=== PATIENT | female | born 1985 | race American Indian/Alaskan Native ===

== ENCOUNTER 2021-03-30 20:12 | Emergency (ER) | payer MEDICAID ==
[2021-03-31 04:39] LABS: Bacteria,Urine 4+ /HPF (Negative); Bilirubin,Urine NEG (Negative); Blood,Urine MOD (Negative); Color,Urine Yellow (Yellow); Mucus,Urine 3+ /HPF; Urobilinogen,Urine < 2.0 mg/dL (<2.0)
[2021-03-31 05:14] LABS: Basophils % (Auto) 0.4 % (0.0-1.8); Eosinophils % (Auto) 0.8 % (0.0-4.3); Hematocrit 37.8 % (30.3-42.9); Lymphocytes # (Auto) 1.8 K/mm3 (1.2-5.4); Lymphocytes % (Auto) 41.5 % (13.4-35.0); Mean Corpuscular HGB Conc 32 % (30-34); Mean Corpuscular Volume 80 fl (79-97); Monocytes # (Auto) 0.5 K/mm3 (0.0-0.8); Monocytes % (Auto) 12.1 % (0.0-7.3); Platelet Count 430 K/mm3 (140-440); Red Blood Count 4.74 M/mm3 (3.65-5.03); Red Cell Distribution Width 16.9 % (13.2-15.2)
[2021-03-31 05:28] LABS: Alanine Aminotransferase 26 units/L (7-56); Albumin 4.6 g/dL (3.9-5); BUN/Creatinine Ratio 14; Blood Urea Nitrogen 11 mg/dL (7-17); Calcium 9.1 mg/dL (8.4-10.2); Hemolysis Index 6
[2021-03-31] MEDS ORDERED: cefTRIAXone/NS 2 GM/100 ML 2 GM/100 ML BAG IV ONE (07:07)
[2021-03-31] MEDS ORDERED: MORPHINE 4 MG/1 ML INJ IV ONE (07:07)
[2021-03-31] MEDS ORDERED: SODIUM CHLORIDE 0.9% 1000 ML 1,000 ML IV ONE (07:07)
[2021-03-31] MEDS ORDERED: ONDANSETRON 4 MG/2 ML INJ IV ONE (07:07)
--- NOTE | 2021-03-31 07:37 | Emergency Department Report ---
ED Abdominal Pain HPI - General Chief Complaint: Abdominal Pain Stated Complaint: ABDOMINAL PAIN Time Seen by Provider: 03/31/21 07:06 Source: EMS Mode of arrival: Stretcher Limitations: No Limitations - History of Present Illness Initial Comments: This is a 35-year-old female nontoxic, well nourished in appearance, no acute signs of distress presents to the ED with c/o of nausea and vomiting and abdominal pain several days. Patient describes vomiting as food content and yellow gastric acid. Patient describes abdominal pain as cramping and aching with level of 8/10 diffuse. When asked patient about her incision site from C- section that was performed about 2 months ago, patient denies any symptoms such as purulent drainage or any complaints at incision site. Patient denies chest pain, short of breath, fever, hemoptysis, blood in stool, chills, headache, stiff neck, numbness or tingling. Patient denies any diarrhea or constipation. Denies any blood in stool. Patient denies any recent travels. Patient denies any allergies or PMH. The patient was evaluated in the emergency department for symptoms described in the history of present illness. He/she was evaluated in the context of the global COVID-19 pandemic, which necessitated consideration that the patient might be at risk for infection with the virus that causes COVID-19. Institutional protocols and algorithms that pertain to the evaluation of patients at risk for COVID-19 are in a state of rapid change based on information released by regulatory bodies including the CDC and federal and state organizations. These policies and algorithms were followed during the alisha burt's care in the emergency department. Please note that these policies, procedures and recommendations changed on a rapid basis. MD Complaint: abdominal pain -: days(s) Location: diffuse Radiation: none Migration to: no migration Severity: mild Severity scale (0 -10): 8 Quality: cramping, aching Consistency: constant Improves With: nothing Worsens With: nothing Associated Symptoms: nausea, vomiting. denies: diarrhea, fever, chills, constipation, dysuria, hematemesis, hematochezia, melena, hematuria, anorexia, syncope - Related Data Previous Rx's Medication Instructions Recorded Last Taken Type Dicyclomine [Bentyl] 20 mg PO Q12H PRN #12 tablet 03/31/21 Unknown Rx Ondansetron [Zofran Odt] 4 mg PO Q8HR PRN #12 tab.rapdis 03/31/21 Unknown Rx cephALEXin [Keflex] 500 mg PO Q8HR #21 cap 03/31/21 Unknown Rx Allergies Allergy/AdvReac Type Severity Reaction Status Date / Time No Known Allergies Allergy Verified 03/30/21 20:20 ED Review of Systems ROS: Stated complaint: ABDOMINAL PAIN Other details as noted in HPI Comment: All other systems reviewed and negative Constitutional: denies: chills, fever Eyes: denies: eye pain, eye discharge, vision change ENT: denies: ear pain, throat pain Respiratory: denies: cough, shortness of breath, wheezing Cardiovascular: denies: chest pain, palpitations Endocrine: no symptoms reported Gastrointestinal: abdominal pain, nausea, vomiting. denies: diarrhea, constipation, hematemesis, melena, hematochezia Genitourinary: denies: urgency, dysuria, discharge Musculoskeletal: denies: back pain, joint swelling, arthralgia Skin: denies: rash, lesions Neurological: denies: headache, weakness, paresthesias Psychiatric: denies: anxiety, depression Hematological/Lymphatic: denies: easy bleeding, easy bruising ED Past Medical Hx - Medications Home Medications: Home Medications Medication Instructions Recorded Confirmed Last Taken Type Dicyclomine [Bentyl] 20 mg PO Q12H PRN #12 tablet 03/31/21 Unknown Rx Ondansetron [Zofran Odt] 4 mg PO Q8HR PRN #12 tab.rapdis 03/31/21 Unknown Rx cephALEXin [Keflex] 500 mg PO Q8HR #21 cap 03/31/21 Unknown Rx ED Physical Exam - General Limitations: No Limitations General appearance: alert, in no apparent distress - Head Head exam: Present: atraumatic, normocephalic - Eye Eye exam: Present: normal appearance - Neck Neck exam: Present: normal inspection, full ROM. Absent: lymphadenopathy - Respiratory Respiratory exam: Present: normal lung sounds bilaterally. Absent: respiratory distress, wheezes, rales, rhonchi, stridor, chest wall tenderness, accessory muscle use, decreased breath sounds, prolonged expiratory - Cardiovascular Cardiovascular Exam: Present: regular rate, normal rhythm, normal heart sounds. Absent: bradycardia, tachycardia, irregular rhythm, systolic murmur, diastolic murmur, rubs, gallop - GI/Abdominal GI/Abdominal exam: Present: soft, tenderness (diffuse), normal bowel sounds, other (No cellulitis in incision site. No abscess on exam in incision site. No purulent drainage noted on exam from incision site.). Absent: distended, guarding, rebound, rigid, diminished bowel sounds - Extremities Exam Extremities exam: Present: full ROM - Back Exam Back exam: Present: normal inspection, full ROM. Absent: tenderness, CVA tenderness (R), CVA tenderness (L), muscle spasm, paraspinal tenderness, vertebral tenderness, rash noted - Neurological Exam Neurological exam: Present: alert, oriented X3, normal gait - Psychiatric Psychiatric exam: Present: normal affect, normal mood - Skin Skin exam: Present: warm, dry, intact, normal color. Absent: rash ED Course Vital Signs 03/30/21 03/31/21 20:22 10:25 Temperature 98.6 F 98.4 F Pulse Rate 88 76 Respiratory 18 20 Rate Blood Pressure 153/97 [Left] Blood Pressure 154/97 [Right] O2 Sat by Pulse 98 99 Oximetry - Reevaluation(s) Reevaluation #1: 03/31/21 07:36 Patient is speaking in full sentences with no signs of distress noted. ED Medical Decision Making - Lab Data Result diagrams: 03/31/21 04:07 03/31/21 04:07 Lab Results 03/31/21 03/31/21 03/31/21 Range/Units 04:07 04:07 04:07 WBC 4.3 L (4.5-11.0) K/mm3 RBC 4.74 (3.65-5.03) M/mm3 Hgb 12.0 (10.1-14.3) gm/dl Hct 37.8 (30.3-42.9) % MCV 80 (79-97) fl MCH 25 L (28-32) pg MCHC 32 (30-34) % RDW 16.9 H (13.2-15.2) % Plt Count 430 (140-440) K/mm3 Lymph % (Auto) 41.5 H (13.4-35.0) % Wilkin % (Auto) 12.1 H (0.0-7.3) % Eos % (Auto) 0.8 (0.0-4.3) % Baso % (Auto) 0.4 (0.0-1.8) % Lymph # (Auto) 1.8 (1.2-5.4) K/mm3 Wilkin # (Auto) 0.5 (0.0-0.8) K/mm3 Eos # (Auto) 0.0 (0.0-0.4) K/mm3 Baso # (Auto) 0.0 (0.0-0.1) K/mm3 Seg Neutrophils % 45.2 (40.0-70.0) % Seg Neutrophils # 2.0 (1.8-7.7) K/mm3 Sodium 136 L (137-145) mmol/L Potassium 3.7 (3.6-5.0) mmol/L Chloride 97.1 L (98-107) mmol/L Carbon Dioxide 23 (22-30) mmol/L Anion Gap 20 mmol/L BUN 11 (7-17) mg/dL Creatinine 0.8 (0.6-1.2) mg/dL Estimated GFR > 60 ml/min BUN/Creatinine Ratio 14 % Glucose 130 H (65-100) mg/dL Calcium 9.1 (8.4-10.2) mg/dL Total Bilirubin 0.20 (0.1-1.2) mg/dL AST 24 (5-40) units/L ALT 26 (7-56) units/L Alkaline Phosphatase 115 (35-129) units/L Total Protein 8.3 H (6.3-8.2) g/dL Albumin 4.6 (3.9-5) g/dL Albumin/Globulin Ratio 1.2 % HCG, Qual Negative (Negative) Urine Color (Yellow) Urine Turbidity (Clear) Urine pH (5.0-7.0) Ur Specific [place] (1.003-1.030) Urine Protein (Negative) mg/dL Urine Glucose (UA) (Negative) mg/dL Urine Ketones (Negative) mg/dL Urine Blood (Negative) Urine Nitrite (Negative) Urine Bilirubin (Negative) Urine Urobilinogen (<2.0) mg/dL Ur Leukocyte Esterase (Negative) Urine WBC (Auto) (0.0-6.0) /HPF Urine RBC (Auto) (0.0-6.0) /HPF U Epithel Cells (Auto) (0-13.0) /HPF Urine Bacteria (Auto) (Negative) /HPF Urine Mucus /HPF 03/31/21 Range/Units Unknown WBC (4.5-11.0) K/mm3 RBC (3.65-5.03) M/mm3 Hgb (10.1-14.3) gm/dl Hct (30.3-42.9) % MCV (79-97) fl MCH (28-32) pg MCHC (30-34) % RDW (13.2-15.2) % Plt Count (140-440) K/mm3 Lymph % (Auto) (13.4-35.0) % Wilkin % (Auto) (0.0-7.3) % Eos % (Auto) (0.0-4.3) % Baso % (Auto) (0.0-1.8) % Lymph # (Auto) (1.2-5.4) K/mm3 Wilkin # (Auto) (0.0-0.8) K/mm3 Eos # (Auto) (0.0-0.4) K/mm3 Baso # (Auto) (0.0-0.1) K/mm3 Seg Neutrophils % (40.0-70.0) % Seg Neutrophils # (1.8-7.7) K/mm3 Sodium (137-145) mmol/L Potassium (3.6-5.0) mmol/L Chloride (98-107) mmol/L Carbon Dioxide (22-30) mmol/L Anion Gap mmol/L BUN (7-17) mg/dL Creatinine (0.6-1.2) mg/dL Estimated GFR ml/min BUN/Creatinine Ratio % Glucose (65-100) mg/dL Calcium (8.4-10.2) mg/dL Total Bilirubin (0.1-1.2) mg/dL AST (5-40) units/L ALT (7-56) units/L Alkaline Phosphatase (35-129) units/L Total Protein (6.3-8.2) g/dL Albumin (3.9-5) g/dL Albumin/Globulin Ratio % HCG, Qual (Negative) Urine Color Yellow (Yellow) Urine Turbidity Cloudy (Clear) Urine pH 5.0 (5.0-7.0) Ur Specific [place] 1.029 (1.003-1.030) Urine Protein 100 mg/dl (Negative) mg/dL Urine Glucose (UA) Neg (Negative) mg/dL Urine Ketones Neg (Negative) mg/dL Urine Blood Mod (Negative) Urine Nitrite Pos (Negative) Urine Bilirubin Neg (Negative) Urine Urobilinogen < 2.0 (<2.0) mg/dL Ur Leukocyte Esterase Sm (Negative) Urine WBC (Auto) 23.0 H (0.0-6.0) /HPF Urine RBC (Auto) 3.0 (0.0-6.0) /HPF U Epithel Cells (Auto) 13.0 (0-13.0) /HPF Urine Bacteria (Auto) 4+ (Negative) /HPF Urine Mucus 3+ /HPF - Radiology Data [facility] [address] [place] [address] Cat Scan Report Signed Patient: PATRICK HURLEY MR#: [id number] : 09/1985 Acct:[id number] Age/Sex: 35 / F ADM Date: 03/30/21 Loc: ED Attending Dr: Ordering Physician: DEONDRE JIMÉNEZ NP Date of Service: 03/31/21 Procedure(s): CT abdomen pelvis w con Accession Number(s): [id number] cc: DEONDRE JIMÉNEZ NP CT abdomen pelvis w con INDICATION / CLINICAL INFORMATION: abd pain with n/v 100 ml omni 300. TECHNIQUE: Axial CT images were obtained through the abdomen and pelvis after 100 cc of Omnipaque [address] scans at this location are performed using CT dose reduction for ALARA by means of automated exposure control. COMPARISON: None available. FINDINGS: LOWER CHEST: No significant abnormality LIVER: No significant abnormality GALLBLADDER/BILIARY TREE: No significant abnormality PANCREAS: No significant abnormality SPLEEN: No significant abnormality ADRENALS: No significant abnormality KIDNEYS / URETER: No significant abnormality URINARY BLADDER: No significant abnormality REPRODUCTIVE ORGANS: Uterus is enlarged with multiple fibroids. IUD appears to be within the lower uterine segment, though evaluation is limited due to extensive fibroid disease. STOMACH / BOWEL: Small bowel is normal in caliber. The colon is unremarkable. The appendix is not discretely seen, though there are no secondary signs of appendicitis. LYMPH NODES: No significant adenopathy. VASCULATURE: No significant abnormality. OTHER: No free air, free fluid, or focal fluid collection is identified. SKELETAL SYSTEM: No acute osseous findings. IMPRESSION: 1. No acute abnormality of the abdomen or pelvis. No evidence of bowel obstruction or localized inflammation. 2. Uterus is enlarged with multiple fibroids. IUD appears to be located within the lower uterine segment. Signer Name: Benigno Gan MD Signed: 03/31/2021 8:36 AM Workstation Name: [id number] Transcribed By: CAS Dictated By: BENIGNO GAN MD Electronically Authenticated By: BENIGNO GAN MD Signed Date/Time: 03/31/21835 DD/ 1 TD/TT: - Medical Decision Making This is a 35-year-old female that presents with abdominal pain, UTI and nausea vomiting. Patient is stable and was examined by me. Negative signs of symptoms of appendicitis. Labs obtained. UA obtained. CT of abdomen obtained and dictated by the radiologist. Patient is notified of the report with no questions noted by the patient. Vital signs are stable prior to discharge. Patient received medical treatment in the ED which patient stated symptoms has resovled and subsided. Was instructed note to operate any machinery due to possible drowsiness and stated someone will drive the patient home. A by mouth challenge has been obtained and patient tolerated well with no nausea vomiting. Patient was also instructed to Follow-up with a primary care doctor in 3-5 days or if symptoms worsen and continue return to emergency room as soon as possible. At time of discharge, the patient does not seem toxic or ill in appearance. No acute signs of distress noted. Patient agrees to discharge treatment plan of care. No further questions noted by the patient. Critical care attestation.: If time is entered above; I have spent that time in minutes in the direct care of this critically ill patient, excluding procedure time. ED Disposition Clinical Impression: UTI (urinary tract infection) Qualifiers: Urinary tract infection type: acute cystitis Hematuria presence: without hematuria Qualified Code(s): N30.00 - Acute cystitis without hematuria Abdominal pain Qualifiers: Abdominal location: generalized Qualified Code(s): R10.84 - Generalized abdominal pain Nausea & vomiting Qualifiers: Vomiting type: unspecified Qualified Code(s): R11.2 - Nausea with vomiting, un specified Disposition: HOME / SELF CARE / HOMELESS Is pt being admited?: No Does the pt Need Aspirin: No Condition: Stable Instructions: Abdominal Pain, Adult, Urinary Tract Infection, Adult, [id number], Abdominal Pain (ED) Additional Instructions: Follow-up with a primary care doctor in 3-5 days or if symptoms worsen and continue return to emergency room as soon as possible. Prescriptions: Dicyclomine [Bentyl] 20 mg PO Q12H PRN #12 tablet PRN Reason: abdominal pain cephALEXin [Keflex] 500 mg PO Q8HR #21 cap Ondansetron [Zofran Odt] 4 mg PO Q8HR PRN #12 tab.rapdis PRN Reason: Nausea Referrals: Eliezer MARTINEZ [Other] - 3-5 Days PRIMARY CARE, [Referring] - 3-5 Days MANSOOR WHITE MD [Staff Physician] - 3-5 Days Forms: Work/School Release Form(ED) Time of Disposition: 09:41
[2021-03-31] MEDS ORDERED: fentaNYL 100 MCG/2 ML INJ IV ONE (08:16)
--- NOTE | 2021-03-31 08:41 | Cat Scan Report ---
CT abdomen pelvis w con INDICATION / CLINICAL INFORMATION: abd pain with n/v 100 ml omni 300. TECHNIQUE: Axial CT images were obtained through the abdomen and pelvis after 100 cc of Omnipaque [address] scans at this location are performed using CT dose reduction for ALARA by means of automated exposure control. COMPARISON: None available. FINDINGS: LOWER CHEST: No significant abnormality LIVER: No significant abnormality GALLBLADDER/BILIARY TREE: No significant abnormality PANCREAS: No significant abnormality SPLEEN: No significant abnormality ADRENALS: No significant abnormality KIDNEYS / URETER: No significant abnormality URINARY BLADDER: No significant abnormality REPRODUCTIVE ORGANS: Uterus is enlarged with multiple fibroids. IUD appears to be within the lower ut erine segment, though evaluation is limited due to extensive fibroid disease. STOMACH / BOWEL: Small bowel is normal in caliber. The colon is unremarkable. The appendix is not dis cretely seen, though there are no secondary signs of appendicitis. LYMPH NODES: No significant adenopathy. VASCULATURE: No significant abnormality. OTHER: No free air, free fluid, or focal fluid collection is identified. SKELETAL SYSTEM: No acute osseous findings. IMPRESSION: 1. No acute abnormality of the abdomen or pelvis. No evidence of bowel obstruction or localized infla mmation. 2. Uterus is enlarged with multiple fibroids. IUD appears to be located within the lower uterine segm ent. Signer Name: Tripp Gan MD Signed: 03/31/2021 8:36 AM Workstation Name: [id number]
[2021-03-31] MEDS ORDERED: MIDAZOLAM 5 MG/5 ML INJ MDV IV NR (09:00)
[2021-03-31 10:26] VITALS: BP 154/97
== END 2021-03-31 10:31 | disposition home or self-care (01) ==
LOC: ED 20:12
DX: N30.00 Acute cystitis without hematuria (principal); R10.84 Generalized abdominal pain; R11.2 Nausea with vomiting, unspecified
CPT/HCPCS: 36415; 74177; 80053; 81001; 84703; 85025; 87086; 96365; 96375; 99284; J0696; J2270; J2405; J7030; Q9967; 96361; Q0162

== ENCOUNTER 2021-05-07 09:44 | Emergency (ER) | payer MEDICAID ==
[2021-05-07] MEDS ORDERED: ACETAMINOPEN W/CODEINE 120-12MG ORAL LIQD 5 ML PO ONE (10:53)
[2021-05-07] MEDS ORDERED: dexAMETHasone 20 MG/5 ML VIAL IV ONE (10:53)
[2021-05-07] MEDS ORDERED: KETOROLAC 30 MG/1 ML INJ IV ONE (10:53)
--- NOTE | 2021-05-07 10:54 | Emergency Department Report ---
ED ENT HPI - General Chief complaint: Sore Throat Stated complaint: PAIN IN THROAT Time Seen by Provider: 05/07/21 10:35 Source: patient Mode of arrival: Ambulatory Limitations: No Limitations - History of Present Illness Initial comments: 35-year-old female who denies past medical hx presents to the ER today with complaints of severe sore throat. Onset 3 days ago. She states she feels like her symptoms are getting worse. She reports pain and difficulty swallowing due to pain. She states she feels like her throat is swollen. She denies any associated fever, chills, cough, difficulty breathing, rhinorrhea or nasal congestion. She denies any ill contacts. She denies similar symptoms in past. She denies any recent COVID 19 testing and she has not been vaccinated against COVID 19. MD complaint: sore throat -: days(s) (3) - Related Data Previous Rx's Medication Instructions Recorded Last Taken Type Dicyclomine [Bentyl] 20 mg PO Q12H PRN #12 tablet 03/31/21 Unknown Rx Acetamin/Codeine 120-12Mg/5 ml 5 - 10 ml PO TID PRN #100 ml 05/07/21 Unknown Rx [Tylenol/Codeine 120-12 mg/5 ml] Amoxicillin [Trimox CAP] 500 mg PO Q8H #30 capsule 05/07/21 Unknown Rx dexAMETHasone [Decadron] 4 mg PO Q12H #10 tablet 05/07/21 Unknown Rx Allergies Allergy/AdvReac Type Severity Reaction Status Date / Time No Known Allergies Allergy Verified 05/07/21 10:00 ED Dental HPI - General Chief complaint: Sore Throat Stated complaint: PAIN IN THROAT Time Seen by Provider: 05/07/21 10:35 Source: patient Mode of arrival: Ambulatory Limitations: No Limitations - Related Data Previous Rx's Medication Instructions Recorded Last Taken Type Dicyclomine [Bentyl] 20 mg PO Q12H PRN #12 tablet 03/31/21 Unknown Rx Acetamin/Codeine 120-12Mg/5 ml 5 - 10 ml PO TID PRN #100 ml 05/07/21 Unknown Rx [Tylenol/Codeine 120-12 mg/5 ml] Amoxicillin [Trimox CAP] 500 mg PO Q8H #30 capsule 05/07/21 Unknown Rx dexAMETHasone [Decadron] 4 mg PO Q12H #10 tablet 05/07/21 Unknown Rx Allergies Allergy/AdvReac Type Severity Reaction Status Date / Time No Known Allergies Allergy Verified 05/07/21 10:00 ED Review of Systems ROS: Stated complaint: PAIN IN THROAT Other details as noted in HPI Comment: All other systems reviewed and negative ENT: throat pain. denies: congestion Respiratory: denies: cough, orthopnea, shortness of breath, SOB with exertion, SOB at rest, wheezing Cardiovascular: denies: chest pain, palpitations Genitourinary: denies: urgency, dysuria, frequency, hematuria, discharge, abnormal menses Musculoskeletal: denies: back pain, joint swelling, arthralgia Skin: denies: rash, lesions, change in color, change in hair/nails, pruritus Neurological: denies: headache, weakness, numbness, paresthesias, confusion, abnormal gait, vertigo Psychiatric: denies: anxiety, depression, auditory hallucinations, visual hallucinations, homicidal thoughts, suicidal thoughts Hematological/Lymphatic: denies: easy bleeding, easy bruising, swollen glands ED Past Medical Hx - Past Medical History Previous Medical History?: No - Surgical History Additional Surgical History: C SECTION - Medications Home Medications: Home Medications Medication Instructions Recorded Confirmed Last Taken Type Dicyclomine [Bentyl] 20 mg PO Q12H PRN #12 tablet 03/31/21 Unknown Rx Acetamin/Codeine 120-12Mg/5 ml 5 - 10 ml PO TID PRN #100 ml 05/07/21 Unknown Rx [Tylenol/Codeine 120-12 mg/5 ml] Amoxicillin [Trimox CAP] 500 mg PO Q8H #30 capsule 05/07/21 Unknown Rx dexAMETHasone [Decadron] 4 mg PO Q12H #10 tablet 05/07/21 Unknown Rx ED Physical Exam - General Limitations: No Limitations General appearance: alert, in distress (mild, appears uncomfortable ), obese - Head Head exam: Present: atraumatic, normocephalic, normal inspection - ENT ENT exam: Present: mucous membranes moist - Expanded ENT Exam Expanded Mouth exam: Present: muffled voice (mild ), tongue normal. Absent: drooling, trismus, tongue elevation Teeth exam: Present: normal inspection Throat exam: Positive: tonsillar erythema, tonsillomegaly. Negative: tonsillar exudate, R peritonsillar mass, L peritonsillar mass - Neck Neck exam: Present: normal inspection, full ROM, lymphadenopathy (anterior cervical ) - Respiratory Respiratory exam: Present: normal lung sounds bilaterally. Absent: respiratory distress, wheezes, rales, rhonchi, stridor - Cardiovascular Cardiovascular Exam: Present: regular rate, normal rhythm, normal heart sounds - Neurological Exam Neurological exam: Present: alert, oriented X3, CN II-XII intact, normal gait - Psychiatric Psychiatric exam: Present: normal affect, normal mood - Skin Skin exam: Present: intact ED Course Vital Signs 05/07/21 05/07/21 10:03 13:05 Temperature 32.1 F L 98.0 F Pulse Rate 89 94 H Respiratory 20 16 Rate Blood Pressure 169/111 Blood Pressure 152/90 [Right] O2 Sat by Pulse 97 96 Oximetry ED Medical Decision Making - Medical Decision Making 35-year-old female who denies past medical hx presents to the ER today with complaints of severe sore throat. Onset 3 days ago. She states she feels like her symptoms are getting worse. She reports pain and difficulty swallowing due to pain. She states she feels like her throat is swollen. She denies any associated fever, chills, cough, difficulty breathing, rhinorrhea or nasal congestion. She denies any ill contacts. She denies similar symptoms in past. She denies any recent COVID 19 testing and she has not been vaccinated against COVID 19. 1240: Patient currently resting comfortably in recliner. She reports some improvement of her symptoms after IV meds. She is currently not in any distress. She is controlling her secretions and she has no stridor and is not in any r espiratory distress. She has no significant trismus on exam. her airway appears to be intact. No evidence of peritonsillar abscess elderly angina at this time. Rapid strep and mono negative. Given bilateral tonsillar swelling, erythema and exudates, one exam I will still consider starting patient on antibiotics as well as steroids and pain medications. Discussed lab results with patient. Discussed concerns for bacterial tonsillitis and that she also got a prescription for antibiotics as well as steroids in pain medication. Recommend that she do a soft diet and sip on fluids for the next couple days. Recommend follow up with PCP. Patient expressed understanding and agreed with plan. Patient stable at time of discharge. Critical care attestation.: If time is entered above; I have spent that time in minutes in the direct care of this critically ill patient, excluding procedure time. ED Disposition Clinical Impression: Tonsillitis Disposition: 01 HOME / SELF CARE / HOMELESS Is pt being admited?: No Does the pt Need Aspirin: No Condition: Stable Instructions: Tonsillitis, [id number] Additional Instructions: I recommend that you take the amoxicillin as prescribed until completion. Take the Decadron as prescribed and as well as the Tylenol threes. Also recommend that you continue to sip on some fluids especially cold fluids you can also do ice chips, Jell-O, yogurt or any soft foods. Follow-up with your primary care doctor and/or ENT specialist if symptoms persist. Return to the ER if your symptoms worsens in any way. Prescriptions: dexAMETHasone [Decadron] 4 mg PO Q12H #10 tablet Amoxicillin [Trimox CAP] 500 mg PO Q8H #30 capsule Acetamin/Codeine 120-12Mg/5 ml [Tylenol/Codeine 120-12 mg/5 ml] 5 - 10 ml PO TID PRN #100 ml PRN Reason: Pain Referrals: DIANA ADAM MD [Staff Physician] - 3-5 Days Forms: Work/School Release Form(ED) Time of Disposition: 12:36
[2021-05-07 13:06] VITALS: BP 152/90
== END 2021-05-07 13:07 | disposition home or self-care (01) ==
LOC: ED 09:44
DX: J03.90 Acute tonsillitis, unspecified (principal); Z98.890 Other specified postprocedural states
CPT/HCPCS: 36415; 86308; 87116; 87430; 96374; 96375; 99283; J1100; J1885